=== PATIENT | female | born 1930 | race Caucasian/White ===

== ENCOUNTER 2016-07-18 18:08 | Emergency (ER) | payer OTHER, MEDICAID ==
[~2016-07-18] VITALS: Ht 139.7 cm; Wt 69.9 kg
[~2016-07-18 18:08] MED LIST: ACTOS45 MG PO; AMARYL2 MG PO; ASPIRIN81 M1 PO; CARBIDOPA AND L1 TA2 PO; CARBIDOPA PO; CATAPRES0.1 MG PO; JANUMET 1000 MG1 TAB PO; KLONOPIN0.5 MG PO; LANTUS SOLOS100 U/ML SUBQ; NAMENDA10 MG PO; PAXIL30 MG PO; PLENDIL5 MG PO; PRILOSEC40 MG PO; VITAMIN B12100 MC1 PO; VITAMIN D31000 IU PO; ZESTRIL30 MG PO; ZOCOR20 MG PO; [UNRECOGNIZED DRUG - OTHER] PO
[2016-07-18 18:11] VITALS: BP 150/75
--- NOTE | 2016-07-18 18:46 | NUR ---
PT CAME TO ER W/C/O LEFT ARM PAIN X THIS MORNING--DENIES INJURY /TARUMA ,DAUGHTER STATES, PT C/O CHEST PAIN WELL BUT PT CURRENTLY DENIES.LEFT WRIST IS SLIGHTLY SWOLLEN.DENIES SOB/F/N/V/D.HX HTN, DM, PARKINSON'S , DEMENTIA, SEIZURE.PT IS AAOX3.NO ACUTE DISTRESS NOTED AST THIS TIME.MD MADE AWARE OF PT'S CONDITION.
--- NOTE | 2016-07-18 18:46 | NUR ---
PT WHEELCHAIR ASSISTED TO BED 7 AT THIS TIME.
--- NOTE | 2016-07-18 19:16 | NUR ---
RECEIVED REPORT FROM SANDRA AGUILERA. ASSUMED PT CARE.
--- NOTE | 2016-07-18 19:16 | NUR ---
REPORT/TRANSFER OF CARE GIVEN WILLY Branham
--- NOTE | 2016-07-18 20:45 | NUR ---
Dr. Mejias evaluating patient at bedside.
--- NOTE | 2016-07-18 21:04 | NUR ---
X-Ray at bedside.
--- NOTE | 2016-07-18 22:35 | NUR ---
APPLIED LEFT FA SPLINT AND SLING. PROCEDURE TOLERATED WELL.
[2016-07-18 22:40] VITALS: BP 140/70
--- NOTE | 2016-07-18 22:40 | NUR ---
Patient discharged with v/s stable. Written and verbal after care instructions given and explained BY DR CONTRERAS. Patient alert, oriented and verbalized understanding of instructions. Wheel Chair Assisted with to car. All questions addressed prior to discharge. ID band removed. Patient advised to follow up with PMD. Rx of TYLENOL given. Patient educated on indication of medication including possible reaction and side effects. Opportunity to ask questions provided and answered BY DR CONTRERAS.
[2016-09-29] MEDS ORDERED: NAMENDA10 MG PO (09:52)
[2016-09-29] MEDS ORDERED: FELODIPINE5 MG PO (09:52)
[2016-09-29] MEDS ORDERED: GLIMEPIRIDE4 MG PO (09:52)
[2016-09-29] MEDS ORDERED: SINEMET 25/1001 TAB PO (09:52)
[2016-09-29] MEDS ORDERED: NEURONTIN100 MG PO (09:52)
[2016-09-29] MEDS ORDERED: ACETAMINOPHEN325 M2 PO (09:52)
[2016-09-29] MEDS ORDERED: MECLIZINE25 M2 PO (09:52)
[2016-09-29] MEDS ORDERED: LASIX20 MG PO (09:52)
[2016-09-29] MEDS ORDERED: PAXIL10 MG PO (09:52)
[2016-09-29] MEDS ORDERED: ZOCOR20 MG PO (09:52)
[2016-09-29] MEDS ORDERED: ZESTRIL20 MG PO (09:52)
[2016-09-29] MEDS ORDERED: CATAPRES0.1 MG PO (09:52)
[2016-09-29] MEDS ORDERED: JANUMET 50-1,01 EACH PO (09:52)
== END 2016-07-18 22:40 | disposition home or self-care (01) ==
LOC: MED 18:08
DX: S63.92XA Sprain of unspecified part of left wrist and hand, initial encounter (principal); E11.9 Type 2 diabetes mellitus without complications; I10 Essential (primary) hypertension; Z79.82 Long term (current) use of aspirin; Z79.899 Other long term (current) drug therapy; G20 Parkinson's disease; F02.80 Dementia in other diseases classified elsewhere, unspecified severity, without behavioral disturbance, psychotic disturbance, mood disturbance, and anxiety; W19.XXXA Unspecified fall, initial encounter; Y93.89 Activity, other specified; Y92.89 Other specified places as the place of occurrence of the external cause; Y99.8 Other external cause status

== ENCOUNTER 2016-07-29 13:17 | Emergency (ER) | payer OTHER, MEDICAID ==
[~2016-07-29] VITALS: Ht 139.7 cm; Wt 69.9 kg
[~2016-07-29 13:17] MED LIST changes: -ACTOS45 MG PO; -AMARYL2 MG PO; +ASPI81CT89 PO; -ASPIRIN81 M1 PO; +CARB1TAB17 PO; +CARB1TER PO; -CARBIDOPA AND L1 TA2 PO; -CARBIDOPA PO; -CATAPRES0.1 MG PO; +CHOL100011 PO; +CLON0.1T42 PO; +CLON0.5T PO; +GLIM2TAB PO; +INSU100S22 SUBQ; -JANUMET 1000 MG1 TAB PO; -KLONOPIN0.5 MG PO; -LANTUS SOLOS100 U/ML SUBQ; +LISI30TA6 PO; +MEMA10TA PO; +METF1TAB4 PO; -NAMENDA10 MG PO; +PARO30TA22 PO; -PAXIL30 MG PO; +PIOG45TA PO; -PLENDIL5 MG PO; -PRILOSEC40 MG PO; +SIMV20TA1 PO; -VITAMIN B12100 MC1 PO; -VITAMIN D31000 IU PO; +VITB12 PO; -ZESTRIL30 MG PO; -ZOCOR20 MG PO; +[UNRECOGNIZED DRUG - CODE] PO; -[UNRECOGNIZED DRUG - OTHER] PO
--- NOTE | 2016-07-29 13:17 | NUR ---
PT BIB ALS TO ER BED 3.
--- NOTE | 2016-07-29 13:18 | NUR ---
ems gave pt 4mg odt zofran followed by 4mg zofran iv
--- NOTE | 2016-07-29 13:18 | NUR ---
Patient being evaluated by physician at bedside.
--- NOTE | 2016-07-29 13:18 | NUR ---
PATIENT PRESENTS TO ED WITH n/v and dizziness . ; SKIN IS PINK/WARM/DRY; AAOX4 WITH EVEN AND STEADY GAIT; LUNGS CLEAR BL; HR EVEN AND REGULAR; PT DENIES ANY FEVER, CP, SOB, OR COUGH AT THIS TIME; PATIENT STATES PAIN OF 0/10 AT THIS TIME; VSS; PATIENT POSITIONED FOR COMFORT; HOB ELEVATED; BEDRAILS UP X2; BED DOWN. ER MD MADE AWARE OF PT STATUS.
[2016-07-29] MEDS ORDERED: NACL 0.9% 1,000 ML IV SCH (13:19)
[2016-07-29] MEDS ORDERED: ONDANSETRON 4 MG/2 ML VIAL IVP ONE (13:20)
[2016-07-29] MEDS ORDERED: MECLIZINE 25 MG TAB PO ONE (13:20)
[2016-07-29 13:21] VITALS: BP 184/87
--- NOTE | 2016-07-29 13:40 | NUR ---
X-Ray at bedside.
[2016-07-29 13:41] LABS: BASOPHILS # (AUTO) 0.2 K/uL (0.00-0.22); BASOPHILS % (AUTO) 2.2 % (0.0-2.0); EOSINOPHILS # (AUTO) 0.7 K/uL (0-0.4); HEMATOCRIT 37.3 % (36-48); HEMOGLOBIN 12.3 g/dL (12.0-16.0); LYMPHOCYTES # (AUTO) 2.5 K/uL (2.5-16.5); LYMPHOCYTES % (AUTO) 30.7 % (20.5-51.1); MEAN CORPUSCULAR HEMOGLOBIN 29 pg (27-31); MEAN CORPUSCULAR HGB CONC 33 g/dL (33-37); MEAN CORPUSCULAR VOLUME 89 fL (80-94); MONOCYTES # (AUTO) 0.7 K/uL (0.8-1.0); MONOCYTES % (AUTO) 8.1 % (1.7-9.3); PLATELET COUNT (AUTO) 270 K/uL (140-450); RED BLOOD CELL COUNT(AUTO) 4.21 MIL/uL (4.20-5.40); RED CELL DISTRIBUTION WIDTH 13.8 % (11.6-13.7); WHITE BLOOD COUNT (AUTO) 8.1 K/uL (4.8-10.8)
[2016-07-29 13:55] LABS: ANION GAP 10.4 (8-16); CALCIUM 8.8 mg/dL (8.5-10.1); CARBON DIOXIDE 33.1 mmol/L (21-32); CHLORIDE 101 mmol/L (98-107); CREATININE 1.1 mg/dL (0.6-1.3); GLUCOSE 209 mg/dL (74-106); POTASSIUM 3.5 mmol/L (3.5-5.1); SODIUM SERUM 141 mmol/L (136-145); UREA NITROGEN, BLOOD 24 mg/dL (7-18)
--- NOTE | 2016-07-29 14:00 | NUR ---
daughter asked if we can give pt medication to control b/p--MD notified, asked if pt can bring home meds to provide for pt. daughter stated , there is no one that may bring meds to ER at this time. will notify
[2016-07-29 14:01] LABS: ALANINE AMINOTRANSFERASE 13 U/L (12-78); ALBUMIN 3.3 g/dL (3.4-5.0); ALKALINE PHOSPHATASE 84 U/L (46-116); ASPARTATE AMINOTRANSFERASE 12 U/L (15-37); TOTAL BILIRUBIN 0.3 mg/dL (0.0-1.0); TOTAL PROTEIN, SERUM 7.3 g/dL (6.4-8.2)
[2016-07-29 14:10] LABS: INR 1.1 (0.8-1.2); PARTIAL THROMBOPLASTIN TIME 23.7 secs (22-35.6); PROTHROMBIN TIME 10.7 secs (10.8-13.4)
--- NOTE | 2016-07-29 14:25 | NUR ---
pt in [facility] with OU closed, no s/s resp distress---no repeated emesis noted, does not continue to complain about dizziness at this time. will continue to observe and monitor for changes.
[2016-07-29] MEDS ORDERED: cloNIDine 0.1 MG TAB PO ONE (14:30)
[2016-07-29 14:32] LABS: AMYLASE 33 U/L (25-115); LIPASE 125 U/L (73-393)
--- NOTE | 2016-07-29 14:37 | NUR ---
denies dizziness at this time
--- NOTE | 2016-07-29 15:37 | NUR ---
pt to CT via [facility]
--- NOTE | 2016-07-29 15:50 | NUR ---
returned from ct awake alert--smiling--continues to denie dizziness, no n/v--
[2016-07-29 16:01] LABS: APPEARANCE,URINE CLEAR (CLEAR); BILIRUBIN,URINE NEGATIVE (NEGATIVE); BLOOD, URINE NEGATIVE (NEGATIVE); COLOR,URINE OTHER (YELLOW); LEUKOCYTE ESTERASE ,URINE NEGATIVE (NEGATIVE); NITRITE, URINE NEGATIVE (NEGATIVE); PH,URINE 7.5 (5.0-9.0); PROTEIN,URINE NEGATIVE (NEGATIVE); UGLUCOSE NEGATIVE (NEGATIVE); UROBILINOGEN,URINE 0.2 EU/dL (0.2 - 1)
[2016-07-29 16:11] LABS: BACTERIA,URINE 1-9 (FEW) /HPF (None Seen); RBC,URINE 0-5 (RARE) /HPF (0-5); SQUAMOUS EPITHELIAL CELL,UR 0-3 (FEW) /LPF (0-3 (FEW)); WBC,URINE 0-5 (RARE) /HPF (0-5)
--- NOTE | 2016-07-29 16:15 | NUR ---
daughter at bedside
--- NOTE | 2016-07-29 16:54 | NUR ---
pt sitting up smiling-holding conversation with daughter-- speaking with them
[2016-07-29 17:23] VITALS: BP 134/68
--- NOTE | 2016-07-29 17:23 | NUR ---
Patient discharged with v/s stable. Written and verbal after care instructions given and explained. Patient alert, oriented and verbalized understanding of instructions. Ambulatory with . All questions addressed prior to discharge. ID band removed. Patient advised to follow up with PMD. Rx of antivert given. Patient educated on indication of medication including possible reaction and side effects. Opportunity to ask questions provided and answered.
== END 2016-07-29 17:23 | disposition home or self-care (01) ==
LOC: MED 13:17
PROC: 0THB73Z Insertion of Infusion Device into Bladder, Via Natural or Artificial Opening (ICD-10-PCS; principal; 2016-07-29)
PROC: 4A02X4Z Measurement of Cardiac Electrical Activity, External Approach (ICD-10-PCS; 2016-07-29)
PROC: BW24YZZ Computerized Tomography (CT Scan) of Chest and Abdomen using Other Contrast (ICD-10-PCS; 2016-07-29)
DX: R42 Dizziness and giddiness (principal); I10 Essential (primary) hypertension; R11.11 Vomiting without nausea; G20 Parkinson's disease; F02.80 Dementia in other diseases classified elsewhere, unspecified severity, without behavioral disturbance, psychotic disturbance, mood disturbance, and anxiety; E11.9 Type 2 diabetes mellitus without complications; R56.9 Unspecified convulsions; J45.909 Unspecified asthma, uncomplicated
CPT/HCPCS: 36415; 51701; 71010; 71275; 80053; 81001; 82150; 82553; 83690; 83880; 84484; 85025; 85379; 85610; 85730; 93005; 96361; 96374; 99291; C1758; J2405; J7030; J8597; Q0092; Q9967

== ENCOUNTER 2016-09-29 09:04 | Emergency (ER) | payer OTHER, MEDICAID ==
[~2016-09-29] VITALS: Ht 144.8 cm; Wt 77.1 kg
--- NOTE | 2016-09-29 09:04 | NUR ---
Patient BIBA BLS, transferred to bed 3. RN evaluating patient at bedside.
--- NOTE | 2016-09-29 09:15 | NUR ---
Dr. Mccord evaluating patient at bedside.
[2016-09-29 09:16] VITALS: BP 135/89
--- NOTE | 2016-09-29 09:24 | NUR ---
PT BIBA FROM HOME C/O BILAT KNEE PAIN;PT STATES RT KNEE HURTS MORE THAN LT KNEE. DAUGHTER AT BEDSIDE STS ALSO NOTICED GENERALIZED WEAKNESS X3DAYS. NORMALLY USES WALKER AT HOME. BG 291 IN FIELD.HX DEMENTIA, ALZHIEMERS, PARKINSONS, DM, HTN, HIGH CHOLESTEROL, BILAT KNEE SX 20YRS AGO IN [place]. DENIES N/V/D; SKIN IS PINK/WARM/DRY; AAOX4 WITH EVEN LUNGS CLEAR BL; HR EVEN AND REGULAR; PT DENIES ANY FEVER, CP, SOB, OR COUGH AT THIS TIME; PATIENT STATES PAIN OF 6/10 AT THIS TIME;PATIENT POSITIONED FOR COMFORT; HOB ELEVATED; BEDRAILS UP X2; BED DOWN. ER MD MADE AWARE OF PT STATUS.
[2016-09-29] MEDS ORDERED: KETOROLAC 60 MG/2 ML VIAL IM ONE (09:45)
[2016-09-29] MEDS ORDERED: PAX10 PO (09:52)
[2016-09-29] MEDS ORDERED: [UNRECOGNIZED DRUG - CODE] PO (09:52)
[2016-09-29] MEDS ORDERED: SIMV20TA1 PO (09:52)
[2016-09-29] MEDS ORDERED: CLON0.1T42 PO (09:52)
[2016-09-29] MEDS ORDERED: METF1TAB5 PO (09:52)
[2016-09-29] MEDS ORDERED: GLIM4TAB2 PO (09:52)
[2016-09-29] MEDS ORDERED: ACET-1182 PO (09:52)
[2016-09-29] MEDS ORDERED: GABA100C PO (09:52)
[2016-09-29] MEDS ORDERED: SIN25100 PO (09:52)
[2016-09-29] MEDS ORDERED: LISI-420 PO (09:52)
[2016-09-29] MEDS ORDERED: MECL-272 PO (09:52)
[2016-09-29] MEDS ORDERED: FURO-572 PO (09:52)
[2016-09-29] MEDS ORDERED: MEMA10TA PO (09:52)
--- NOTE | 2016-09-29 10:08 | NUR ---
PT LYING ON BED;NO ACUTE DISTRESS NOTED;WILL CONTINUE TO MONITOR PT.
--- NOTE | 2016-09-29 10:25 | NUR ---
Patient discharged with v/s stable. Written and verbal after care instructions given and explained. Patient alert, oriented and verbalized understanding of instructions. Wheel Chair Assisted with to car. All questions addressed prior to discharge. ID band removed. Patient advised to follow up with PMD. Rx of NORCO AND KLONOPIN given. Patient educated on indication of medication including possible reaction and side effects. Opportunity to ask questions provided and answered.
[2016-09-29 10:26] VITALS: BP 128/67
== END 2016-09-29 10:25 | disposition home or self-care (01) ==
LOC: MED 09:04
DX: M25.562 Pain in left knee (principal); M25.561 Pain in right knee; G20 Parkinson's disease; F02.80 Dementia in other diseases classified elsewhere, unspecified severity, without behavioral disturbance, psychotic disturbance, mood disturbance, and anxiety; E11.9 Type 2 diabetes mellitus without complications; I10 Essential (primary) hypertension; E78.5 Hyperlipidemia, unspecified
CPT/HCPCS: 96372; 99283; J1885

== ENCOUNTER 2016-10-01 22:19 | Emergency (ER) | payer OTHER, MEDICAID ==
[~2016-10-01] VITALS: Ht 152.4 cm; Wt 70.3 kg
[~2016-10-01 22:19] MED LIST changes: +ACETAMINOPHEN325 M2 PO; +ACTOS45 MG PO; +AMARYL2 MG PO; -ASPI81CT89 PO; +ASPIRIN81 M1 PO; -CARB1TAB17 PO; -CARB1TER PO; +CARBIDOPA AND L1 TA2 PO; +CARBIDOPA PO; +CATAPRES0.1 MG PO; -CHOL100011 PO; -CLON0.1T42 PO; -CLON0.5T PO; +FELODIPINE5 MG PO; -GLIM2TAB PO; +GLIMEPIRIDE4 MG PO; -INSU100S22 SUBQ; +JANUMET 1000 MG1 TAB PO; +JANUMET 50-1,01 EACH PO; +KLONOPIN0.5 MG PO; +LANTUS SOLOS100 U/ML SUBQ; +LASIX20 MG PO; -LISI30TA6 PO; +MECLIZINE25 M2 PO; -MEMA10TA PO; -METF1TAB4 PO; +NAMENDA10 MG PO; +NEURONTIN100 MG PO; -PARO30TA22 PO; +PAXIL10 MG PO; +PAXIL30 MG PO; -PIOG45TA PO; +PLENDIL5 MG PO; +PRILOSEC40 MG PO; -SIMV20TA1 PO; +SINEMET 25/1001 TAB PO; +VITAMIN B12100 MC1 PO; +VITAMIN D31000 IU PO; -VITB12 PO; +ZESTRIL20 MG PO; +ZESTRIL30 MG PO; +ZOCOR20 MG PO; -[UNRECOGNIZED DRUG - CODE] PO; +[UNRECOGNIZED DRUG - OTHER] PO
[2016-10-01 22:23] VITALS: BP 174/100
--- NOTE | 2016-10-01 23:08 | NUR ---
TO ER BED 5
--- NOTE | 2016-10-01 23:20 | NUR ---
Patient being evaluated by physician at bedside.
[2016-10-01] MEDS ORDERED: KETOROLAC 30 MG/ML VIAL IVP ONE (23:25)
[2016-10-01] MEDS ORDERED: NACL 0.9% 1,000 ML IV ONE (23:25)
--- NOTE | 2016-10-01 23:25 | NUR ---
PATIENT PRESENTS TO ED WITH ON ANXIETY ATTACK FOR 2 DAYS. PT DENIES N/V/D; SKIN IS PINK/WARM/DRY; AAOX4; LUNGS CLEAR BL; HR EVEN AND REGULAR; PT DENIES ANY FEVER, CP, SOB, OR COUGH AT THIS TIME; PATIENT STATES PAIN OF 0/10 AT THIS TIME; PATIENT POSITIONED FOR COMFORT; HOB ELEVATED; BEDRAILS UP X2; BED DOWN. ER MD MADE AWARE OF PT STATUS.
[2016-10-02] MEDS ORDERED: LORazepam 2 MG/ML VIAL IVP ONE (00:15)
[2016-10-02 01:50] VITALS: BP 173/91
--- NOTE | 2016-10-02 01:50 | NUR ---
Patient discharged with v/s stable. Written and verbal after care instructions given and explained. Patient verbalized understanding. Wheel Chair Assisted with to car. All questions addressed prior to discharge. Advised to follow up with PMD.
== END 2016-10-02 01:50 | disposition home or self-care (01) ==
LOC: MED 22:19
DX: F41.9 Anxiety disorder, unspecified (principal); G20 Parkinson's disease; F02.80 Dementia in other diseases classified elsewhere, unspecified severity, without behavioral disturbance, psychotic disturbance, mood disturbance, and anxiety; E11.9 Type 2 diabetes mellitus without complications; I10 Essential (primary) hypertension
CPT/HCPCS: 36415; 71010; 80053; 81001; 84484; 85025; 85610; 85730; 87040; 87086; 93005; 96361; 96374; 96375; 99285; J1885; J2060; J7030